=== PATIENT | male | born 1965 | race Caucasian/White ===

== ENCOUNTER 2018-12-18 10:29 | Emergency (ER) | payer SELFPAY ==
[~2018-12-18] VITALS: Ht 175.3 cm; Wt 96.0 kg
[2018-12-18 11:33] LABS: BASOPHILS % (AUTO) 0.3 % (0-1); EOSINOPHILS % (AUTO) 0.1 % (0-6); HEMATOCRIT 45.8 % (35.0-45.0); HEMOGLOBIN 15.7 g/dl (12.0-16.0); LYMPHOCYTES # (AUTO) 1.3 X10'3 (1.1-4.8); LYMPHOCYTES % (AUTO) 13.8 % (21-51); MEAN CORPUSCULAR HEMOGLOBIN 30.9 PG (27.0-31.0); MEAN CORPUSCULAR HGB CONC 34.3 g/dL (33.0-36.5); MEAN PLATELET VOLUME 6.9 FL (7.4-10.4); MONOCYTES # (AUTO) 0.5 X10'3 (0-0.9); NEUTROPHILS # (AUTO) 7.7 X10'3 (1.8-7.7); NEUTROPHILS % (AUTO) 80.8 % (42-75); PLATELET COUNT 256 X10'3 (140-440); RED BLOOD COUNT 5.09 X10'6 (4.20-5.60); RED CELL DISTRIBUTION WIDTH 12.7 % (11.5-14.5); WHITE BLOOD COUNT 9.6 X10'3 (4.5-11.0)
[2018-12-18 11:49] LABS: ALANINE AMINOTRANSFERASE 36 U/L (12-78); ALBUMIN 4.2 G/DL (3.4-5.0); ALBUMIN/GLOBULIN RATIO 1.2 (1.1-1.5); ALKALINE PHOSPHATASE 61 IU/L (46-116); ANION GAP 10 (8-16); ASPARTATE AMINO TRANSFERASE 20 U/L (10-37); BILIRUBIN,TOTAL 0.4 MG/DL (0.1-1.0); BLOOD UREA NITROGEN 10 MG/DL (7-18); BUN/CREATININE RATIO 13.2 (6.6-38.0); CALCIUM 9.2 MG/DL (8.5-10.1); CHLORIDE 104 MMOL/L (99-107); CREATININE 0.76 MG/DL (0.40-0.90); ETHANOL < 0.010 GM/DL (0.0-0.010); GLUCOSE 112 MG/DL (70-104); POTASSIUM 4.1 MMOL/L (3.5-5.1); SODIUM 140 MMOL/L (135-145); TOTAL CARBON DIOXIDE 25.8 MMOL/L (24-32); TOTAL PROTEIN 7.8 G/DL (6.4-8.2); eGFR 80 ML/MIN
[2018-12-18 12:05] LABS: URINE HCG NEGATIVE (NEG)
[2018-12-18 12:16] LABS: URINE AMPHETAMINE SCREEN POSITIVE (Neg); URINE BARBITUATE SCREEN NEGATIVE (Neg); URINE BENZODIAZEPINES SCREEN NEGATIVE (Neg); URINE CANNABINOID SCREEN POSITIVE (Neg); URINE COCAINE SCREEN NEGATIVE (Neg); URINE METHADONE SCREEN NEGATIVE (Neg); URINE OPIATE SCREEN NEGATIVE (Neg); URINE PHENCYCLIDINE SCREEN NEGATIVE (Neg)
[2018-12-18] MEDS ORDERED: NO HOME MEDS (12:17)
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
--- NOTE | 2018-12-18 15:20 | NUR ---
Patient sleeping on left side. No distress observed. Continue to monitor.
--- NOTE | 2018-12-18 16:54 | NUR ---
Patient is sitting up in bed. No distress observed. Patient had been sleeping all afternoon. Continue to monitor.
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
--- NOTE | 2018-12-18 17:11 | NUR ---
Patient is on the phone with his sister Barbara, who is picking him up in the morning. Continue to monitor.
--- NOTE | 2018-12-18 19:00 | NUR ---
Pt resting quietly, no s/s of distress.
--- NOTE | 2018-12-18 21:56 | NUR ---
Pt resting quietly, no s/s of distress.
--- NOTE | 2018-12-19 06:37 | NUR ---
Patient's sister Barbara called, states here at hospital in parking lot and that she is ready to pick pt up. Discharge papers being processed.
[2018-12-19 07:27] VITALS: BP 141/93
== END 2018-12-19 07:24 | disposition home or self-care (01) ==
LOC: EDSEX 10:29 → ER 10:29
DX: F15.129 Other stimulant abuse with intoxication, unspecified (principal)
CPT/HCPCS: 36415; 80053; 80305; 80320; 81025; 85025; 99285